=== PATIENT | male | born 1970 | race Two or more races ===

== ENCOUNTER → 2016-12-16 | Outpatient (CLI) | payer MEDICARE, OTHER ==
[2016-12-16 21:39] LABS: BASOPHIL% 0.4 % (0-2.5); EOSINOPHIL% 0.4 % (0.0-7.0); HEMOGLOBIN 12.2 gm/dL (13.0-16.0); LYMPHOCYTE# 0.8 X10e3 (1.0-3.5); MEAN CELL VOLUME 86.5 FL (83-96); MEAN CORPUSCULAR HEMOGLOBIN 29.4 PG (28-34); MEAN PLATELET VOLUME 8.8 FL (6.5-11.5); MONOCYTE# 0.6 X10e3 (0-1.0); MONOCYTE% 9.7 % (3.0-12.0); NEUTROPHIL% 77.5 % (40-75); PLATELET COUNT 191 X10e3 (140-420); RED BLOOD COUNT 4.16 X10e (3.90-5.60); RED CELL DISTRIBUTION WIDTH 13.7 % (11.0-15.5); WHITE BLOOD COUNT 6.4 X10e3 (4.0-10.5)
[2016-12-16 21:40] LABS: DIFF IND NO
[2016-12-16 21:41] LABS: URINE APPEARANCE CLOUDY; URINE BILIRUBIN NEG (NEG); URINE BLOOD 3+ (NEG); URINE COLOR YELLOW; URINE GLUCOSE 50 MG/DL (NORM); URINE KETONE NEG (NEG); URINE LEUKOCYTE ESTERASE 3+ (NEG); URINE NITRATE POS (NEG); URINE PROTEIN TRACE (NEG); URINE SPECIFIC GRAVITY 1.015 (1.003-1.035); URINE UROBILINOGEN 0.2 MG/DL (NORM)
[2016-12-16 21:44] LABS: MICRO INDICATED? YES; URINE RBC 50-100 /[HPF] (0-2)
[2016-12-16 21:45] LABS: CULTURE INDICATED? YES; URINE BACTERIA 4+ (NEG); URINE WBC INNUM /[HPF] (0-5)
[2016-12-16 21:49] LABS: CALCIUM SERUM 8.5 mg/dL (8.4-10.2); CREATININE SERUM 0.6 mg/dL (0.6-1.4); GLOM FILT RATE Estimated 122.3 mL/min (>60); POTASSIUM 3.6 mmol/L (3.5-5.1)
== END | disposition home or self-care (01) ==
LOC: SLAB 20:57
PROVIDERS: Internal Medicine
DX: Z43.3 Encounter for attention to colostomy (principal); F33.0 Major depressive disorder, recurrent, mild; N39.0 Urinary tract infection, site not specified; L89.322 Pressure ulcer of left buttock, stage 2; G82.50 Quadriplegia, unspecified
CPT/HCPCS: 80048; 81003; 85025; 87086; 87088; 87186